=== PATIENT | male | born 1995 | race Caucasian/White ===

== ENCOUNTER 2018-09-18 12:47 | Emergency (ER) | payer BC ==
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
[2018-09-18 14:28] VITALS: BP 112/84
== END 2018-09-18 14:28 | disposition home or self-care (01) ==
DX: L03.115 Cellulitis of right lower limb (principal); Z98.890 Other specified postprocedural states